=== PATIENT | male | born 1955 | race Caucasian/White ===

== ENCOUNTER 2020-04-30 08:31 | Day surgery (SDC) | payer BC ==
--- NOTE | 2020-04-25 10:48 | HP ---
DATE OF SURGERY: 04/30/2020 HISTORY OF PRESENT ILLNESS: He had colonoscopy and left inguinal hernia repair in the past. He has prior history of polyp on colonoscopy in the past. PAST SURGICAL HISTORY: Colonoscopy. Left inguinal hernia repair. MEDICATIONS: Crestor. ALLERGIES: NKDA. FAMILY HISTORY: Negative in regards to this problem. SOCIAL HISTORY: No smoking or alcohol abuse. REVIEW OF SYSTEMS: Fourteen systems reviewed per admission assessment. No chest pain or palpitations other systems negative or noncontributory as above and per preadmission questionnaire. PHYSICAL EXAMINATION: GENERAL: No acute distress. HEENT: Sclerae nonicteric. NECK: No JVD. CHEST: Equal excursion, nonlabored breathing. CVS: Regular rate and rhythm. ABDOMEN: Nondistended. EXTREMITIES: No significant edema. NEURO: Alert, oriented, moving extremities symmetrically. RECTAL: Deferred timed to endoscopy exam. PSYCH: Appropriate mood and affect. Sclera nonicteric. IMPRESSION: Prior history of polyp on colonoscopy within six years ago. I feel he would benefit from follow up screening colonoscopy as he had polyps in the past. Risks and benefits explained in detail including but not limited to bleeding or infection, risk of bowel injury or perforation, risk of sedation but not limited to. He understands the above risks because he performs the procedures himself, will proceed with outpatient under MAC anesthesia.
[~2020-04-30 08:31] MED LIST: DIPRIVAN 200 MG/20 ML IV ONE; Ketamine HCl 50 MG/ML ONE; Lactated Ringers 1,000 ML IV SCH
[2020-04-30] MEDS ORDERED: DIPRIVAN 200 MG/20 ML IV ONE (09:55)
[2020-04-30 11:00] VITALS: BP 179/72; PULSE 48; O2SAT 99
[2020-04-30 11:26] LABS: Hematocrit 45.9 % (42-50); Mean Cell Volume 91.3 fl (78-100); Mean Corpuscular Hemoglobin 29.8 pg (26-32); Mean Corpuscular Hgb Concent. 32.7 g/dl (32-36); Mean Platelet Volume 10.7 fl (7.5-11.0); Platelet Count 206 K/mm3 (150-450); Red Blood Count 5.03 M/mm3 (4.1-5.6); Red Cell Distribution Width 13.5 % (11.5-14.0); White Blood Count 6.5 K/mm3 (4.0-10.5)
[2020-04-30 11:39] LABS: ALKALINE PHOSPHATASE 48 U/L (38-126); ANION GAP 15.2 MEQ/L (5-15); BLOOD UREA NITROGEN 17 mg/dL (9-20); CHLORIDE 103 mmol/L (98-107); Calcium 9.8 mg/dL (8.4-10.2); Carbon Dioxide 26 mmol/L (22-30); Creatinine 1 0.98 mg/dL (0.66-1.25); Glucose 88 mg/dL (74-106); Potassium 4.3 mmol/L (3.5-5.1); SGOT/AST 35 U/L (17-59); SGPT/ALT 44 U/L (0-50); SODIUM 141 mmol/L (137-145); Total Protein 7.9 g/dL (6.3-8.2)
[2020-04-30 11:50] LABS: Risk Ratio 2.8
--- NOTE | 2020-05-02 13:01 | OP ---
SURGERY DATE/TIME: 04/30/2020 0943 PREOPERATIVE DIAGNOSIS: History of polyps and need for follow up screening colonoscopy. POSTOPERATIVE DIAGNOSES: 1) Colon polyp. 2) Mild pancolonic diverticulosis. 3) Fair bowel prep. 4) Withdrawal time 12 minutes. 5) ASA Class I. 6) Appendiceal orifice and valve photo documented. PROCEDURES: 1) Colonoscopy to cecum. 2) Hot snare polypectomy 2 to 3 mm transverse colon polyp. 3) Hot snare polypectomy 3 to 4 mm rectosigmoid polyp. 4) Hot snare polypectomy 3 mm rectal polyp. 5) Hot biopsy removal of small early polyp versus hyperplastic lesion sigmoid colon. SURGEON: Dr. Blaze Adams. ANESTHESIA: MAC. ESTIMATED BLOOD LOSS: Minimal. INDICATIONS: As noted above. Risks and benefits explained in detail but not limited to and consent obtained. DESCRIPTION OF PROCEDURE AND FINDINGS: The patient is taken to the endoscopy suite. MAC anesthesia introduced. After official time out and no disagreement with planned procedure, digital rectal exam did not reveal any rectal masses. Video colonoscope inserted and passed up the tortuous sigmoid, descending, transverse and ascending colon. With the aid of external pressure the scope passed around to the cecum. Appendiceal orifice and valve well visualized and photo documented. Prep over all was fair with a few solid stool chunks just slightly limiting the exam with overall fairly good bowel prep. Scope slowly and carefully withdrawn over the next 12 minutes. He did have some mild pancolonic diverticula, small elongated 2 to 3 mm polyp at transverse colon removed with hot snare polypectomy with brief bursts of cautery. We pulled back to the sigmoid colon where a small early polyp versus hyperplastic lesion was removed with hot biopsy forceps and brief bursts of cautery. Good hemostasis noted. Scope pulled back to the rectosigmoid colon at the juncture of sigmoid-rectal area this polyp was about 3 to 4 mm in size removed with hot snare polypectomy with brief bursts of cautery. Good hemostasis is noted. Otherwise about 3 cm inside anal verge there is a small 3 mm polyp removed with hot snare polypectomy with brief bursts of cautery. Good hemostasis noted. Scope withdrawn. The patient tolerated the procedure well. There were no immediate complications.
== END 2020-04-30 10:55 | disposition home or self-care (01) ==
LOC: SDC 08:31
PROVIDERS: ATTEND Surgery
DX: Z12.11 Encounter for screening for malignant neoplasm of colon (principal); Z09 Encounter for follow-up examination after completed treatment for conditions other than malignant neoplasm; Z86.010 Personal history of colon polyps; D12.8 Benign neoplasm of rectum; K57.30 Diverticulosis of large intestine without perforation or abscess without bleeding; E78.00 Pure hypercholesterolemia, unspecified; Z79.899 Other long term (current) drug therapy
CPT/HCPCS: 36415; 80053; 80061; 83036; 83721; 85027; J2704

== ENCOUNTER 2023-08-17 06:58 | Day surgery (SDC) | payer BC, MEDICARE ==
--- NOTE | 2023-08-16 08:00 | HP ---
DATE OF SURGERY: 08/17/2023 HISTORY OF PRESENT ILLNESS: The patient is a 67-year-old gentleman with prior history of polyps in the past, last colonoscopy three years ago. He is in need of follow up screening colonoscopy. He is quite healthy and exercises. PAST MEDICAL HISTORY: He denies any chronic illnesses. PAST SURGICAL HISTORY: He had some skin lesions removed in the past. He had colonoscopy in the past. MEDICATIONS: None on a regular basis currently. ALLERGIES: NKDA. FAMILY HISTORY: Negative for colon cancer. SOCIAL HISTORY: He drinks alcohol occasionally, no abuse. Nonsmoker. REVIEW OF SYSTEMS: Again, denies any chronic illnesses or symptoms currently. PHYSICAL EXAMINATION: Height 5'6", weight 140. GENERAL: No acute distress. HEENT: Sclerae nonicteric. EOMI. Oral mucous membranes moist. NECK: No JVD. CHEST: Equal excursion. CVS: Regular rate and rhythm. ABDOMEN: Soft, nondistended. EXTREMITIES: No significant edema. NEURO: Alert, oriented, moving extremities symmetrically. RECTAL: Deferred timed to endoscopy exam. PSYCH: Appropriate mood and affect. SKIN: Dry. IMPRESSION: History of polyps, need follow up screening colonoscopy. I feel he is a candidate. He knows the general risk of bleeding or infection, risk of bowel injury or perforation but not limited to. He agrees to the planned procedure. Plan for outpatient screening colonoscopy under MAC anesthesia.
[2023-08-17] MEDS ORDERED: Lactated Ringers 1,000 ML IV ONE (07:06)
[2023-08-17 07:22] VITALS: RESP 18
[2023-08-17] MEDS ORDERED: Versed 2 MG/2 ML Injection ONE (07:27)
[2023-08-17] MEDS ORDERED: DIPRIVAN 200 MG/20 ML IV ONE ×3 (07:27→07:59)
[2023-08-17] MEDS ORDERED: Xylocaine-Mpf 2% 5 Ml Vial ONE (07:28)
[2023-08-17] MEDS ORDERED: Lactated Ringers 1,000 ML IV SCH (07:30)
[2023-08-17 09:27] VITALS: BP 135/59; PULSE 63; TEMP 96.7; O2SAT 97
--- NOTE | 2023-08-19 09:50 | OP ---
SURGERY DATE/TIME: 08/17/2023 0743 PREOPERATIVE DIAGNOSIS: History of polyps. POSTOPERATIVE DIAGNOSES: 1) ASA Class II. 2) Left colon mild diverticulosis. 3) Small polyps transverse colon, sigmoid colon and rectum. 4) Withdrawal time approximately eleven minutes. PROCEDURES: 1) Colonoscopy to cecum. 2) Hot snare polypectomy transverse colon polyp x1 (small polyp and also stool sample on retrieval). 3) Hot biopsy polypectomy of additional small transverse colon polyp. 4) Hot biopsy polypectomy sigmoid colon polyp. 5) Hot biopsy polypectomy small early polyp versus hyperplastic lesion rectum. SURGEON: Dr. Blaze Adams. ANESTHESIA: MAC. ESTIMATED BLOOD LOSS: Minimal. INDICATIONS: As noted above. Risks and benefits explained in detail but not limited to and consent obtained. DESCRIPTION OF PROCEDURE AND FINDINGS: The patient is taken to the endoscopy room. MAC anesthesia introduced. After official time out and no disagreement with planned procedure, digital rectal exam did not reveal any rectal masses. Video colonoscope inserted and passed up through the slightly tortuous transverse, descending, sigmoid colon around to the cecum. Appendiceal orifice and valve well visualized and photo documented. Prep overall was good a little bit of liquidy semisolid stool suctioned irrigated out as clear as possible. Photo documented the appendiceal orifice and valve area. The scope is then carefully withdrawn over the next eleven minutes. In the transverse colon, a small 3 mm polyp removed with hot snare polypectomy. Unfortunately some of this polyp got lost in the trap and this appeared to be a benign polyp. Another small polyp removed with hot biopsy polypectomy in transverse colon. Another small polyp versus hyperplastic lesion in the sigmoid colon and rectum removed with hot biopsy polypectomy. Good hemostasis was noted. There were no signs of any large polyps, masses or obstructing lesions. The scope is carefully withdrawn. Snared a small polyp in the transverse colon as well as hot biopsy polypectomy of another transverse colon, sigmoid colon and rectal polyp. The scope is withdrawn. There had been some small diverticula in the left colon. No signs of any large polyps, masses or obstructing lesions. The findings were discussed with his out in the waiting area.
== END 2023-08-17 09:10 | disposition home or self-care (01) ==
LOC: SDC 06:58
PROVIDERS: ATTEND Surgery
DX: Z12.11 Encounter for screening for malignant neoplasm of colon (principal); Z09 Encounter for follow-up examination after completed treatment for conditions other than malignant neoplasm; Z86.010 Personal history of colon polyps; K57.30 Diverticulosis of large intestine without perforation or abscess without bleeding; K63.5 Polyp of colon; K62.1 Rectal polyp
CPT/HCPCS: J2250; J2704